=== PATIENT | male | born 1960 | race Caucasian/White ===

== ENCOUNTER 2021-06-15 14:32 | Emergency (ER) | payer OTHER ==
[2021-06-15 14:45] VITALS: BP 139/86; PULSE 98; TEMP 98.2; BMI 24.5
== END 2021-06-15 15:40 | disposition home or self-care (01) ==
LOC: JER 14:32
DX: R05 Cough (principal)
CPT/HCPCS: 71046-TC-FY; 99283-25

== ENCOUNTER 2023-09-27 16:23 | Inpatient (IN) | payer OTHER ==
[2023-09-27] MEDS ORDERED: KETOROLAC TROMETHAMINE 15 MG/ML VIAL IVPUSH ONE (18:35)
[2023-09-27] MEDS ORDERED: ACETAMINOPHEN 500 MG TABLET (FP) PO ONE (18:36)
[2023-09-27] MEDS ORDERED: ACETAMINOPHEN 500 MG TABLET (FP) ONE (19:37)
[2023-09-27] MEDS ORDERED: KETOROLAC TROMETHAMINE 15 MG/ML VIAL ONE (19:37)
[2023-09-27 19:48] LABS: BASO % 0.3 % (0-2.0); EOS % 1.3 % (0-4.5); HEMOGLOBIN 12.9 GM/dL (11.7-16.9); LYMPH % 15.2 % (8-40); MCH 29.5 pg (25.7-33.7); MCHC 34.9 g/dl (32.0-35.9); MEAN CELL VOLUME 84.5 fl (80-96); MEAN PLT VOLUME 7.3 fl (7.5-11.1); MONO % 6.9 % (3.8-10.2); NEUT % 76.3 % (42.8-82.8); PLATELET COUNT 351 10^3/uL (134-434); RBC 4.38 M/mm3 (4.00-5.60)
[2023-09-27 20:12] LABS: POTASSIUM 4.4 mmol/L (3.5-5.1)
[2023-09-27 20:14] LABS: ALBUMIN 2.8 g/dl (3.4-5.0); CALCIUM 8.4 mg/dL (8.5-10.1)
[2023-09-27 20:15] LABS: BLOOD UREA NITROGEN 18.2 mg/dL (7-18)
[2023-09-27 20:18] LABS: CREATININE 1.1 mg/dL (0.55-1.3)
[2023-09-27 20:19] LABS: BILIRUBIN,TOTAL 0.4 mg/dL (0.2-1); TOT PROT 6.8 g/dl (6.4-8.2)
[2023-09-27] MEDS ORDERED: SODIUM CHLORIDE 0.9% 500 ML INFUS.BAG IV ONE (20:27)
[2023-09-27] MEDS ORDERED: CEFTRIAXONE 1,000 MG in DEXTROSE 5%-WATER - 50 ML IVPB ONE (21:58)
[2023-09-27] MEDS ORDERED: VANCOMYCIN 1,000 MG in DEXTROSE 5%-WATER - 250 ML IVPB ONE (21:58)
[2023-09-27] MEDS ORDERED: CEFTRIAXONE 1 GM/50 ML BAG ONE (22:15)
[2023-09-27] MEDS ORDERED: VANCOMYCIN 1 GRAM (PRE-DOCKED) 1,000 MG/250 ML BAG IVPB ONE (22:15)
[2023-09-28] MEDS ORDERED: VANCOMYCIN 1,000 MG in DEXTROSE 5%-WATER - 250 ML IVPB SCH ×2 (02:00→10:00)
[2023-09-28] MEDS ORDERED: PIPERACILLIN/TAZOB 4.5 GM 4.5 GM in DEXTROSE 5%-WATER 100 ML IVPB SCH ×3 (02:00→10:00)
[2023-09-28] MEDS ORDERED: PIPERACILLIN/TAZOB 4.5 GM 4.5 GM/100 ML BAG IVPB ONE ×2 (02:11→08:57)
[2023-09-28 06:46] LABS: HEMATOCRIT 33.8 % (35.4-49); MCHC 35.7 g/dl (32.0-35.9); MEAN CELL VOLUME 84.1 fl (80-96); MEAN PLT VOLUME 7.3 fl (7.5-11.1); PLATELET COUNT 317 10^3/uL (134-434); RBC 4.02 M/mm3 (4.00-5.60); RDW 12.9 % (11.9-15.9); WHITE BLOOD COUNT 9.8 K/mm3 (4.0-10.0)
[2023-09-28 07:13] LABS: ALBUMIN 2.6 g/dl (3.4-5.0); BLOOD UREA NITROGEN 15.5 mg/dL (7-18); CALCIUM 8.6 mg/dL (8.5-10.1)
[2023-09-28 07:16] LABS: CREATININE 1.1 mg/dL (0.55-1.3)
[2023-09-28 07:17] LABS: TOT PROT 6.2 g/dl (6.4-8.2)
[2023-09-28] MEDS: INSULIN ASPART SLIDING SCALE (NOVOLOG) 1 VIAL SQ SCH ×3 (07:35→17:26)
[2023-09-28 08:34] LABS: BILIRUBIN,TOTAL 0.4 mg/dL (0.2-1)
[2023-09-28] MEDS: LOSARTAN POTASSIUM 25 MG TABLET PO SCH (09:03)
[2023-09-28] MEDS: LEVOTHYROXINE NA 75 MCG TABLET (FP) PO SCH (09:03)
[2023-09-28] MEDS: ROSUVASTATIN CA 20 MG TABLET PO SCH (09:03)
[2023-09-28] MEDS: ENOXAPARIN NA (PORCINE) 40 MG/0.4 ML DISP.SYRIN SQ SCH (09:03)
[2023-09-28] MEDS: EZETIMIBE 10 MG TABLET (FP) PO SCH (09:17)
[2023-09-28] MEDS: OFLOXACIN 0.3% OTIC SOLUTION 5 ML BOTTLE AU SCH (09:17)
[2023-09-28] MEDS ORDERED: VANCOMYCIN 1 GRAM (PRE-DOCKED) 1,000 MG/250 ML BAG IVPB ONE (09:22)
[2023-09-28] MEDS ORDERED: INSULIN (NOVOLOG) ASPART 100 UNITS/ML 10ML VIAL ONE (17:25)
[2023-09-28] MEDS: PIPERACILLIN/TAZOB 3.375 GM 3.375 GM in DEXTROSE 5%-WATER - 50 ML IVPB SCH (17:55)
[2023-09-28] MEDS: VANCOMYCIN/WATER FOR INJ (PEG) 1,000 MG/200 ML BAG IVPB SCH (21:52)
[2023-09-29] MEDS: PIPERACILLIN/TAZOB 3.375 GM 3.375 GM in DEXTROSE 5%-WATER - 50 ML IVPB SCH ×3 (01:53→17:04)
[2023-09-29] MEDS: INSULIN ASPART SLIDING SCALE (NOVOLOG) 1 VIAL SQ SCH ×3 (06:07→16:36)
[2023-09-29] MEDS: LEVOTHYROXINE NA 75 MCG TABLET (FP) PO SCH (06:07)
[2023-09-29] MEDS: EZETIMIBE 10 MG TABLET (FP) PO SCH (09:39)
[2023-09-29] MEDS: LOSARTAN POTASSIUM 25 MG TABLET PO SCH (09:39)
[2023-09-29] MEDS: ENOXAPARIN NA (PORCINE) 40 MG/0.4 ML DISP.SYRIN SQ SCH (09:39)
[2023-09-29] MEDS: ROSUVASTATIN CA 20 MG TABLET PO SCH (09:39)
[2023-09-29] MEDS: VANCOMYCIN/WATER FOR INJ (PEG) 1,000 MG/200 ML BAG IVPB SCH ×2 (09:40→21:35)
[2023-09-29 10:13] LABS: BASO % 0.4 % (0-2.0); EOS % 1.7 % (0-4.5); HEMATOCRIT 36.1 % (35.4-49); HEMOGLOBIN 12.2 GM/dL (11.7-16.9); LYMPH % 22.3 % (8-40); MCH 28.9 pg (25.7-33.7); MEAN PLT VOLUME 7.5 fl (7.5-11.1); MONO % 8.3 % (3.8-10.2); NEUT % 67.3 % (42.8-82.8); PLATELET COUNT 327 10^3/uL (134-434); RBC 4.24 M/mm3 (4.00-5.60); WHITE BLOOD COUNT 11.3 K/mm3 (4.0-10.0)
[2023-09-29 10:28] LABS: POTASSIUM 4.5 mmol/L (3.5-5.1)
[2023-09-29 10:31] LABS: ALBUMIN 2.6 g/dl (3.4-5.0); CALCIUM 8.7 mg/dL (8.5-10.1)
[2023-09-29 10:32] LABS: BLOOD UREA NITROGEN 17.9 mg/dL (7-18)
[2023-09-29 10:35] LABS: CREATININE 1.2 mg/dL (0.55-1.3)
[2023-09-29 10:36] LABS: BILIRUBIN,TOTAL 0.6 mg/dL (0.2-1); TOT PROT 6.3 g/dl (6.4-8.2)
[2023-09-29] MEDS: OFLOXACIN 0.3% OTIC SOLUTION 5 ML BOTTLE AU SCH (10:38)
[2023-09-29] MEDS ORDERED: INSULIN (NOVOLOG) ASPART 100 UNITS/ML 10ML VIAL ONE ×2 (10:59→17:56)
[2023-09-29 15:20] VITALS: BMI 23.8
[2023-09-29] MEDS: ACETAMINOPHEN 325 MG TABLET (FP) PO PRN (19:01)
[2023-09-30] MEDS: PIPERACILLIN/TAZOB 3.375 GM 3.375 GM in DEXTROSE 5%-WATER - 50 ML IVPB SCH ×3 (03:30→17:01)
[2023-09-30] MEDS: LEVOTHYROXINE NA 75 MCG TABLET (FP) PO SCH (05:59)
[2023-09-30] MEDS: INSULIN ASPART SLIDING SCALE (NOVOLOG) 1 VIAL SQ SCH ×3 (05:59→17:01)
[2023-09-30] MEDS: VANCOMYCIN/WATER FOR INJ (PEG) 1,000 MG/200 ML BAG IVPB SCH ×2 (10:06→21:45)
[2023-09-30] MEDS: ROSUVASTATIN CA 20 MG TABLET PO SCH (10:07)
[2023-09-30] MEDS: ACETAMINOPHEN 325 MG TABLET (FP) PO PRN ×2 (10:07→21:44)
[2023-09-30] MEDS: LOSARTAN POTASSIUM 25 MG TABLET PO SCH (10:07)
[2023-09-30] MEDS: OFLOXACIN 0.3% OTIC SOLUTION 5 ML BOTTLE AU SCH (10:10)
[2023-09-30] MEDS: EZETIMIBE 10 MG TABLET (FP) PO SCH (10:10)
[2023-09-30] MEDS: ENOXAPARIN NA (PORCINE) 40 MG/0.4 ML DISP.SYRIN SQ SCH (10:11)
[2023-09-30] MEDS ORDERED: INSULIN (NOVOLOG) ASPART 100 UNITS/ML 10ML VIAL ONE ×2 (11:18→16:38)
[2023-09-30] MEDS: INSULIN (LEVEMIR) 100 UNITS/ML UNITS SQ SCH (21:46)
[2023-10-01] MEDS: PIPERACILLIN/TAZOB 3.375 GM 3.375 GM in DEXTROSE 5%-WATER - 50 ML IVPB SCH ×3 (01:29→19:37)
[2023-10-01] MEDS: LEVOTHYROXINE NA 75 MCG TABLET (FP) PO SCH (06:41)
[2023-10-01] MEDS ORDERED: INSULIN (NOVOLOG) ASPART 100 UNITS/ML 10ML VIAL ONE ×2 (06:45→12:03)
[2023-10-01] MEDS: INSULIN ASPART SLIDING SCALE (NOVOLOG) 1 VIAL SQ SCH ×3 (06:50→18:21)
[2023-10-01] MEDS: INSULIN (LEVEMIR) 100 UNITS/ML UNITS SQ SCH ×2 (06:50→21:51)
[2023-10-01 09:04] LABS: BASO % 0.5 % (0-2.0); EOS % 2.2 % (0-4.5); HEMATOCRIT 39.3 % (35.4-49); HEMOGLOBIN 13.3 GM/dL (11.7-16.9); LYMPH % 25.6 % (8-40); MCH 28.6 pg (25.7-33.7); MCHC 33.9 g/dl (32.0-35.9); MEAN CELL VOLUME 84.5 fl (80-96); MEAN PLT VOLUME 7.3 fl (7.5-11.1); NEUT % 63.7 % (42.8-82.8); PLATELET COUNT 382 10^3/uL (134-434); RBC 4.65 M/mm3 (4.00-5.60); RDW 12.5 % (11.9-15.9); WHITE BLOOD COUNT 10.3 K/mm3 (4.0-10.0)
[2023-10-01 09:08] LABS: POTASSIUM 4.4 mmol/L (3.5-5.1)
[2023-10-01 09:14] LABS: CALCIUM 9.3 mg/dL (8.5-10.1); CREATININE 1.1 mg/dL (0.55-1.3)
[2023-10-01] MEDS: EZETIMIBE 10 MG TABLET (FP) PO SCH (10:07)
[2023-10-01] MEDS: ENOXAPARIN NA (PORCINE) 40 MG/0.4 ML DISP.SYRIN SQ SCH (10:07)
[2023-10-01] MEDS: VANCOMYCIN/WATER FOR INJ (PEG) 1,000 MG/200 ML BAG IVPB SCH ×2 (10:08→21:45)
[2023-10-01] MEDS: LOSARTAN POTASSIUM 25 MG TABLET PO SCH (10:08)
[2023-10-01] MEDS: OFLOXACIN 0.3% OTIC SOLUTION 5 ML BOTTLE AU SCH (10:11)
[2023-10-01] MEDS: ROSUVASTATIN CA 20 MG TABLET PO SCH (10:11)
[2023-10-01] MEDS: ACETAMINOPHEN 325 MG TABLET (FP) PO PRN ×2 (10:12→20:18)
[2023-10-02] MEDS: PIPERACILLIN/TAZOB 3.375 GM 3.375 GM in DEXTROSE 5%-WATER - 50 ML IVPB SCH ×3 (01:48→18:21)
[2023-10-02] MEDS ORDERED: INSULIN (NOVOLOG) ASPART 100 UNITS/ML 10ML VIAL ONE (06:07)
[2023-10-02] MEDS: LEVOTHYROXINE NA 75 MCG TABLET (FP) PO SCH (06:11)
[2023-10-02] MEDS: INSULIN ASPART SLIDING SCALE (NOVOLOG) 1 VIAL SQ SCH ×3 (06:14→18:20)
[2023-10-02] MEDS: EZETIMIBE 10 MG TABLET (FP) PO SCH (09:07)
[2023-10-02] MEDS: LOSARTAN POTASSIUM 25 MG TABLET PO SCH (09:07)
[2023-10-02] MEDS: ROSUVASTATIN CA 20 MG TABLET PO SCH (09:07)
[2023-10-02] MEDS: VANCOMYCIN/WATER FOR INJ (PEG) 1,000 MG/200 ML BAG IVPB SCH ×2 (09:08→22:18)
[2023-10-02] MEDS: OFLOXACIN 0.3% OTIC SOLUTION 5 ML BOTTLE AU SCH (09:08)
[2023-10-02 09:29] LABS: BASO % 0.3 % (0-2.0); EOS % 1.5 % (0-4.5); HEMOGLOBIN 12.8 GM/dL (11.7-16.9); LYMPH % 21.4 % (8-40); MCH 28.9 pg (25.7-33.7); MCHC 33.8 g/dl (32.0-35.9); MEAN CELL VOLUME 85.5 fl (80-96); MEAN PLT VOLUME 7.5 fl (7.5-11.1); NEUT % 68.8 % (42.8-82.8); PLATELET COUNT 340 10^3/uL (134-434); RBC 4.44 M/mm3 (4.00-5.60); RDW 12.8 % (11.9-15.9); WHITE BLOOD COUNT 11.1 K/mm3 (4.0-10.0)
[2023-10-02 09:33] LABS: INR 1.01 (0.83-1.09); PROTHROMBIN TIME (PATIENT) 11.7 SEC (9.7-13.0)
[2023-10-02 09:42] LABS: POTASSIUM 4.3 mmol/L (3.5-5.1)
[2023-10-02 09:46] LABS: ALBUMIN 2.6 g/dl (3.4-5.0); BLOOD UREA NITROGEN 19.5 mg/dL (7-18)
[2023-10-02] MEDS: ENOXAPARIN NA (PORCINE) 40 MG/0.4 ML DISP.SYRIN SQ SCH (09:46)
[2023-10-02 09:48] LABS: CREATININE 1.2 mg/dL (0.55-1.3); PHOSPHOROUS 3.1 mg/dL (2.5-4.9)
[2023-10-02 09:50] LABS: BILIRUBIN,TOTAL 0.4 mg/dL (0.2-1); TOT PROT 6.9 g/dl (6.4-8.2)
[2023-10-02] MEDS ORDERED: BACITRACIN ZINC 15 GM TUBE TOPICAL OINTMENT ONE (12:46)
[2023-10-02] MEDS ORDERED: ONDANSETRON 4 MG/2 ML VIAL IVPUSH PRN ×2 (13:10→16:08)
[2023-10-02] MEDS ORDERED: SODIUM CHLORIDE 1,000 ML IV SCH (13:15)
[2023-10-02] MEDS ORDERED: LIDOCAINE HCL/PF 2% SDV 5ML VIAL ONE (13:18)
[2023-10-02] MEDS ORDERED: PROPOFOL 20 ML ONE (13:19)
[2023-10-02] MEDS ORDERED: ROCURONIUM BROMIDE 50 MG/5 ML SYRINGE ONE (13:19)
[2023-10-02] MEDS ORDERED: MIDAZOLAM HCL 2 MG/2 ML SINGLE DOSE VIAL ONE (13:19)
[2023-10-02] MEDS ORDERED: HYDROmorphone HCl 2 MG/ML VIAL ONE (15:00)
[2023-10-02] MEDS ORDERED: ACETAMINOPHEN INJECTION 100 ML IVPB ONE (15:23)
[2023-10-02] MEDS ORDERED: DEXMEDETOMIDINE HCL 200 MCG/2 ML IVPB ONE (15:23)
[2023-10-02] MEDS ORDERED: OFLOXACIN 0.3% OPHTHALMIC SOLUTION 5 ML BOTTLE AS ONE ×2 (15:33)
[2023-10-02] MEDS ORDERED: OXYMETAZOLINE 0.05% NASAL SOLUTION 15 ML BOTTLE NS ONE ×2 (15:33)
[2023-10-02] MEDS ORDERED: NEOSTIGMINE METHYLSULFATE 0.5 MG/1 ML - 10 ML MDV ONE (15:36)
[2023-10-02] MEDS ORDERED: ePHEDrine SULFATE 50 MG/1 ML AMPULE ONE (15:41)
[2023-10-02] MEDS ORDERED: SUGAMMADEX SODIUM 200 MG/2 ML VIAL ONE (15:46)
[2023-10-02] MEDS: SODIUM CHLORIDE 1,000 ML IV SCH (17:10)
[2023-10-02] MEDS: INSULIN (LEVEMIR) 100 UNITS/ML UNITS SQ SCH (22:19)
[2023-10-02] MEDS: ACETAMINOPHEN 325 MG TABLET (FP) PO PRN (23:23)
[2023-10-03] MEDS: PIPERACILLIN/TAZOB 3.375 GM 3.375 GM in DEXTROSE 5%-WATER - 50 ML IVPB SCH ×3 (02:15→17:22)
[2023-10-03] MEDS: SODIUM CHLORIDE 1,000 ML IV SCH (04:46)
[2023-10-03] MEDS: INSULIN ASPART SLIDING SCALE (NOVOLOG) 1 VIAL SQ SCH ×2 (06:43→11:43)
[2023-10-03] MEDS: INSULIN (LEVEMIR) 100 UNITS/ML UNITS SQ SCH (06:44)
[2023-10-03] MEDS: LEVOTHYROXINE NA 75 MCG TABLET (FP) PO SCH (07:03)
[2023-10-03 09:02] LABS: HEMATOCRIT 30.9 % (35.4-49); MCH 29.8 pg (25.7-33.7); MCHC 35.6 g/dl (32.0-35.9); MEAN CELL VOLUME 83.8 fl (80-96); MEAN PLT VOLUME 7.6 fl (7.5-11.1); PLATELET COUNT 311 10^3/uL (134-434); RBC 3.69 M/mm3 (4.00-5.60); RDW 12.5 % (11.9-15.9); WHITE BLOOD COUNT 12.8 K/mm3 (4.0-10.0)
[2023-10-03 09:25] LABS: BLOOD UREA NITROGEN 25.6 mg/dL (7-18); CREATININE 1.3 mg/dL (0.55-1.3)
[2023-10-03 09:26] LABS: CALCIUM 7.6 mg/dL (8.5-10.1)
[2023-10-03] MEDS: ENOXAPARIN NA (PORCINE) 40 MG/0.4 ML DISP.SYRIN SQ SCH (10:09)
[2023-10-03] MEDS: LOSARTAN POTASSIUM 25 MG TABLET PO SCH (10:10)
[2023-10-03] MEDS: VANCOMYCIN/WATER FOR INJ (PEG) 1,000 MG/200 ML BAG IVPB SCH ×2 (10:10→22:34)
[2023-10-03] MEDS: EZETIMIBE 10 MG TABLET (FP) PO SCH (10:12)
[2023-10-03] MEDS ORDERED: INSULIN (NOVOLOG) ASPART 100 UNITS/ML 10ML VIAL ONE (11:42)
[2023-10-03] MEDS ORDERED: INSULIN ASPART SLIDING SCALE (NOVOLOG) 1 VIAL SQ SCH ×3 (12:27→22:00)
[2023-10-03] MEDS ORDERED: INSULIN (LEVEMIR) 100 UNITS/ML UNITS SQ ONE (13:30)
[2023-10-03] MEDS: OFLOXACIN 0.3% OTIC SOLUTION 5 ML BOTTLE AU SCH (15:46)
[2023-10-03] MEDS ORDERED: INSULIN (LEVEMIR) 100 UNITS/ML UNITS SQ SCH (22:00)
[2023-10-03] MEDS: ROSUVASTATIN CA 20 MG TABLET PO SCH (22:34)
[2023-10-04] MEDS: PIPERACILLIN/TAZOB 3.375 GM 3.375 GM in DEXTROSE 5%-WATER - 50 ML IVPB SCH ×3 (03:09→17:20)
[2023-10-04] MEDS: INSULIN ASPART SLIDING SCALE (NOVOLOG) 1 VIAL SQ SCH ×4 (07:28→22:10)
[2023-10-04] MEDS: INSULIN (LEVEMIR) 100 UNITS/ML UNITS SQ SCH ×2 (07:29→22:09)
[2023-10-04] MEDS: ACETAMINOPHEN 325 MG TABLET (FP) PO PRN ×2 (07:36→22:11)
[2023-10-04] MEDS: LEVOTHYROXINE NA 75 MCG TABLET (FP) PO SCH (07:38)
[2023-10-04] MEDS ORDERED: INSULIN (NOVOLOG) ASPART 100 UNITS/ML 10ML VIAL ONE ×3 (08:28→17:13)
[2023-10-04] MEDS: ENOXAPARIN NA (PORCINE) 40 MG/0.4 ML DISP.SYRIN SQ SCH (09:01)
[2023-10-04] MEDS: LOSARTAN POTASSIUM 25 MG TABLET PO SCH (09:01)
[2023-10-04] MEDS: VANCOMYCIN/WATER FOR INJ (PEG) 1,000 MG/200 ML BAG IVPB SCH ×2 (09:01→22:09)
[2023-10-04] MEDS: OFLOXACIN 0.3% OTIC SOLUTION 5 ML BOTTLE AU SCH (09:02)
[2023-10-04 09:13] LABS: BASO % 0.1 % (0-2.0); EOS % 0.7 % (0-4.5); HEMATOCRIT 34.6 % (35.4-49); HEMOGLOBIN 11.8 GM/dL (11.7-16.9); LYMPH % 26.3 % (8-40); MCHC 34.2 g/dl (32.0-35.9); MEAN CELL VOLUME 84.7 fl (80-96); MEAN PLT VOLUME 7.5 fl (7.5-11.1); MONO % 6.8 % (3.8-10.2); NEUT % 66.1 % (42.8-82.8); PLATELET COUNT 343 10^3/uL (134-434); RBC 4.08 M/mm3 (4.00-5.60); RDW 12.8 % (11.9-15.9); WHITE BLOOD COUNT 12.6 K/mm3 (4.0-10.0)
[2023-10-04] MEDS: EZETIMIBE 10 MG TABLET (FP) PO SCH (09:14)
[2023-10-04 09:46] LABS: POTASSIUM 3.9 mmol/L (3.5-5.1)
[2023-10-04 09:56] LABS: BLOOD UREA NITROGEN 24.9 mg/dL (7-18)
[2023-10-04 09:57] LABS: ALBUMIN 2.7 g/dl (3.4-5.0)
[2023-10-04 09:59] LABS: CREATININE 1.3 mg/dL (0.55-1.3)
[2023-10-04 10:01] LABS: BILIRUBIN,TOTAL 0.7 mg/dL (0.2-1); TOT PROT 6.3 g/dl (6.4-8.2)
[2023-10-04 10:09] LABS: CALCIUM 8.8 mg/dL (8.5-10.1)
[2023-10-04] MEDS: ROSUVASTATIN CA 20 MG TABLET PO SCH (22:09)
[2023-10-05] MEDS: PIPERACILLIN/TAZOB 3.375 GM 3.375 GM in DEXTROSE 5%-WATER - 50 ML IVPB SCH ×3 (02:34→17:07)
[2023-10-05] MEDS: INSULIN (LEVEMIR) 100 UNITS/ML UNITS SQ SCH ×2 (07:05→21:33)
[2023-10-05] MEDS: LEVOTHYROXINE NA 75 MCG TABLET (FP) PO SCH (07:05)
[2023-10-05] MEDS: INSULIN ASPART SLIDING SCALE (NOVOLOG) 1 VIAL SQ SCH ×4 (07:05→21:34)
[2023-10-05] MEDS: ACETAMINOPHEN 325 MG TABLET (FP) PO PRN ×2 (07:11→21:16)
[2023-10-05 09:37] LABS: BASO % 0.4 % (0-2.0); EOS % 1.2 % (0-4.5); HEMATOCRIT 36.3 % (35.4-49); HEMOGLOBIN 12.3 GM/dL (11.7-16.9); LYMPH % 25.7 % (8-40); MCH 28.7 pg (25.7-33.7); MEAN CELL VOLUME 84.6 fl (80-96); MEAN PLT VOLUME 7.3 fl (7.5-11.1); MONO % 8.3 % (3.8-10.2); NEUT % 64.4 % (42.8-82.8); PLATELET COUNT 352 10^3/uL (134-434); RDW 12.7 % (11.9-15.9)
[2023-10-05 09:59] LABS: ALBUMIN 2.6 g/dl (3.4-5.0); CALCIUM 8.1 mg/dL (8.5-10.1)
[2023-10-05] MEDS: LOSARTAN POTASSIUM 25 MG TABLET PO SCH (10:00)
[2023-10-05] MEDS: ENOXAPARIN NA (PORCINE) 40 MG/0.4 ML DISP.SYRIN SQ SCH (10:00)
[2023-10-05] MEDS: EZETIMIBE 10 MG TABLET (FP) PO SCH (10:01)
[2023-10-05 10:02] LABS: CREATININE 1.2 mg/dL (0.55-1.3)
[2023-10-05 10:04] LABS: BILIRUBIN,TOTAL 0.4 mg/dL (0.2-1); TOT PROT 6.6 g/dl (6.4-8.2)
[2023-10-05] MEDS ORDERED: INSULIN (NOVOLOG) ASPART 100 UNITS/ML 10ML VIAL ONE ×3 (11:05→21:31)
[2023-10-05] MEDS: VANCOMYCIN/WATER FOR INJ (PEG) 1,000 MG/200 ML BAG IVPB SCH ×2 (11:10→21:14)
[2023-10-05] MEDS: ROSUVASTATIN CA 20 MG TABLET PO SCH (21:14)
[2023-10-06] MEDS: PIPERACILLIN/TAZOB 3.375 GM 3.375 GM in DEXTROSE 5%-WATER - 50 ML IVPB SCH ×2 (01:19→09:05)
[2023-10-06] MEDS: INSULIN ASPART SLIDING SCALE (NOVOLOG) 1 VIAL SQ SCH ×2 (06:11→11:51)
[2023-10-06] MEDS: INSULIN (LEVEMIR) 100 UNITS/ML UNITS SQ SCH (06:12)
[2023-10-06] MEDS: LEVOTHYROXINE NA 75 MCG TABLET (FP) PO SCH (06:13)
[2023-10-06] MEDS ORDERED: INSULIN (NOVOLOG) ASPART 100 UNITS/ML 10ML VIAL ONE (06:22)
[2023-10-06 07:16] VITALS: RESP 18
[2023-10-06] MEDS: ENOXAPARIN NA (PORCINE) 40 MG/0.4 ML DISP.SYRIN SQ SCH (09:04)
[2023-10-06] MEDS: ACETAMINOPHEN 325 MG TABLET (FP) PO PRN (09:04)
[2023-10-06] MEDS: LOSARTAN POTASSIUM 25 MG TABLET PO SCH (09:05)
[2023-10-06] MEDS: EZETIMIBE 10 MG TABLET (FP) PO SCH (09:05)
[2023-10-06 09:51] LABS: BASO % 0.4 % (0-2.0); HEMATOCRIT 35.3 % (35.4-49); HEMOGLOBIN 12.3 GM/dL (11.7-16.9); LYMPH % 23.2 % (8-40); MCH 29.4 pg (25.7-33.7); MCHC 34.8 g/dl (32.0-35.9); MEAN CELL VOLUME 84.7 fl (80-96); MEAN PLT VOLUME 7.3 fl (7.5-11.1); MONO % 6.8 % (3.8-10.2); NEUT % 68.6 % (42.8-82.8); PLATELET COUNT 346 10^3/uL (134-434); RBC 4.17 M/mm3 (4.00-5.60); RDW 12.6 % (11.9-15.9); WHITE BLOOD COUNT 11.8 K/mm3 (4.0-10.0)
[2023-10-06] MEDS: VANCOMYCIN/WATER FOR INJ (PEG) 1,000 MG/200 ML BAG IVPB SCH (10:35)
[2023-10-06 10:42] LABS: POTASSIUM 3.9 mmol/L (3.5-5.1)
[2023-10-06 10:47] LABS: CALCIUM 8.3 mg/dL (8.5-10.1)
[2023-10-06 10:48] LABS: ALBUMIN 2.6 g/dl (3.4-5.0)
[2023-10-06 10:51] LABS: CREATININE 1.1 mg/dL (0.55-1.3)
[2023-10-06 10:53] LABS: BILIRUBIN,TOTAL 0.5 mg/dL (0.2-1); TOT PROT 6.5 g/dl (6.4-8.2)
[2023-10-06 14:51] VITALS: BP 106/70; PULSE 87; TEMP 97.9
[2023-10-06] MEDS ORDERED: AMOX TR/POT CLAV 875MG/125MG TABLETS (FP) PO SCH (17:30)
== END 2023-10-06 16:17 | disposition home or self-care (01) | DRG 136 ==
LOC: JER 16:23 → JERBED 23:32 → J7W 09-28 15:45
PROVIDERS: ADMIT Internal Medicine; ATTEND Nurse Practitioner Acute Care
PROC: 09JK8ZZ Inspection of Nasal Mucosa and Soft Tissue, Via Natural or Artificial Opening Endoscopic (ICD-10-PCS; principal; 2023-09-30)
PROC: 099R8ZZ Drainage of Left Maxillary Sinus, Via Natural or Artificial Opening Endoscopic (ICD-10-PCS; 2023-10-02)
PROC: 099680Z Drainage of Left Middle Ear with Drainage Device, Via Natural or Artificial Opening Endoscopic (ICD-10-PCS; 2023-10-02)
PROC: 09BV8ZZ Excision of Left Ethmoid Sinus, Via Natural or Artificial Opening Endoscopic (ICD-10-PCS; 2023-10-02 14:00)
DX: H66.012 Acute suppurative otitis media with spontaneous rupture of ear drum, left ear (principal); J32.0 Chronic maxillary sinusitis; H70.12 Chronic mastoiditis, left ear; I10 Essential (primary) hypertension; E78.5 Hyperlipidemia, unspecified; D47.2 Monoclonal gammopathy; E11.65 Type 2 diabetes mellitus with hyperglycemia; J34.2 Deviated nasal septum; J34.89 Other specified disorders of nose and nasal sinuses; E03.9 Hypothyroidism, unspecified; E11.40 Type 2 diabetes mellitus with diabetic neuropathy, unspecified
CPT/HCPCS: 0241U-QW; 36415; 70481-TC; 80048; 80053; 82962; 83036; 83735; 84100; 85025; 85027; 85610; 85651; 85730; 86140; 86850; 86900; 86901; 87040; 87070; 87075; 87186; 87205; 93005; 93010; 94760; 99285-25; G0480; Q9967

== ENCOUNTER 2023-10-16 10:18 | Observation (INO) | payer OTHER ==
[2023-10-16 12:51] LABS: BASO % 0.3 % (0-2.0); HEMATOCRIT 36.3 % (35.4-49); HEMOGLOBIN 12.2 GM/dL (11.7-16.9); LYMPH % 16.9 % (8-40); MCH 28.5 pg (25.7-33.7); MCHC 33.5 g/dl (32.0-35.9); MEAN CELL VOLUME 85.1 fl (80-96); MEAN PLT VOLUME 7.4 fl (7.5-11.1); MONO % 5.5 % (3.8-10.2); NEUT % 76.3 % (42.8-82.8); PLATELET COUNT 363 10^3/uL (134-434); RBC 4.27 M/mm3 (4.00-5.60); RDW 12.8 % (11.9-15.9)
[2023-10-16 12:58] LABS: INR 1.05 (0.83-1.09); PROTHROMBIN TIME (PATIENT) 12.2 SEC (9.7-13.0)
[2023-10-16 13:01] LABS: ACTIVATED PTT 29.8 SECONDS (25.2-36.5)
[2023-10-16 13:21] LABS: POTASSIUM 4.5 mmol/L (3.5-5.1)
[2023-10-16 13:22] LABS: CALCIUM 8.9 mg/dL (8.5-10.1)
[2023-10-16 13:23] LABS: ALBUMIN 2.9 g/dl (3.4-5.0); BLOOD UREA NITROGEN 21.9 mg/dL (7-18)
[2023-10-16 13:28] LABS: BILIRUBIN,TOTAL 0.5 mg/dL (0.2-1); ERYTHROCYTE SEDIMENTATION RATE 92 mm/hr (0-20); TOT PROT 7.2 g/dl (6.4-8.2)
[2023-10-16] MEDS ORDERED: PIPERACILLIN/TAZOB 3.375 GM 3.375 GM in DEXTROSE 5%-WATER - 50 ML IVPB ONE (14:09)
[2023-10-16] MEDS ORDERED: VANCOMYCIN 1 GM PREMIX - 1 GM/200 ML BAG IVPB ONE (14:10)
[2023-10-16] MEDS ORDERED: ACETAMINOPHEN 1000 MG/100 ML BAG IVPB ONE (14:10)
[2023-10-16] MEDS ORDERED: ACETAMINOPHEN INJECTION 100 ML IVPB ONE (14:33)
[2023-10-16] MEDS ORDERED: PIPERACILLIN/TAZOB 3.375 GM 3.375 GM/50 ML BAG IVPB ONE (14:48)
[2023-10-16] MEDS ORDERED: VANCOMYCIN 1 GRAM (PRE-DOCKED) 1,000 MG/250 ML BAG IVPB ONE (15:12)
[2023-10-16 15:34] LABS: URIC ACID 2.6 mg/dL (2.6-7.2)
[2023-10-16] MEDS: INSULIN ASPART SLIDING SCALE (NOVOLOG) 1 VIAL SQ SCH (16:44)
[2023-10-16 20:53] VITALS: BMI 24.3
[2023-10-16] MEDS: INSULIN (LEVEMIR) 100 UNITS/ML UNITS SQ SCH (22:05)
[2023-10-16] MEDS: NAPROXEN 375 MG TABLET PO SCH (22:49)
[2023-10-17] MEDS ORDERED: INSULIN (NOVOLOG) ASPART 100 UNITS/ML 10ML VIAL ONE (06:10)
[2023-10-17] MEDS: LEVOTHYROXINE NA 75 MCG TABLET (FP) PO SCH (06:25)
[2023-10-17] MEDS: INSULIN ASPART SLIDING SCALE (NOVOLOG) 1 VIAL SQ SCH ×3 (06:26→17:01)
[2023-10-17] MEDS: INSULIN (LEVEMIR) 100 UNITS/ML UNITS SQ SCH ×2 (06:26→21:58)
[2023-10-17] MEDS: NAPROXEN 375 MG TABLET PO SCH ×2 (09:04→22:00)
[2023-10-17] MEDS: ENOXAPARIN NA (PORCINE) 40 MG/0.4 ML DISP.SYRIN SQ SCH (09:05)
[2023-10-17] MEDS: LOSARTAN POTASSIUM 25 MG TABLET PO SCH (09:05)
[2023-10-17] MEDS: ACETAMINOPHEN 325 MG TABLET (FP) PO PRN ×2 (09:13→21:58)
[2023-10-17] MEDS: EZETIMIBE 10 MG TABLET (FP) PO SCH (10:00)
[2023-10-17 10:43] LABS: POTASSIUM 4.3 mmol/L (3.5-5.1)
[2023-10-17 10:47] LABS: BLOOD UREA NITROGEN 20.4 mg/dL (7-18)
[2023-10-17 10:50] LABS: CREATININE 1.1 mg/dL (0.55-1.3)
[2023-10-17 12:40] LABS: BASO % 0.4 % (0-2.0); EOS % 1.3 % (0-4.5); HEMATOCRIT 35.2 % (35.4-49); HEMOGLOBIN 11.9 GM/dL (11.7-16.9); MCH 28.6 pg (25.7-33.7); MCHC 33.7 g/dl (32.0-35.9); MEAN PLT VOLUME 7.6 fl (7.5-11.1); MONO % 7.1 % (3.8-10.2); NEUT % 68.2 % (42.8-82.8); PLATELET COUNT 374 10^3/uL (134-434); RBC 4.14 M/mm3 (4.00-5.60); RDW 12.7 % (11.9-15.9); WHITE BLOOD COUNT 10.6 K/mm3 (4.0-10.0)
[2023-10-17] MEDS ORDERED: PIPERACILLIN/TAZOB 3.375 GM 3.375 GM in DEXTROSE 5%-WATER - 50 ML IVPB ONE (15:00)
[2023-10-17] MEDS ORDERED: ROSUVASTATIN CA 20 MG TABLET PO SCH (22:00)
[2023-10-18] MEDS: LEVOTHYROXINE NA 75 MCG TABLET (FP) PO SCH (06:09)
[2023-10-18] MEDS: INSULIN (LEVEMIR) 100 UNITS/ML UNITS SQ SCH (07:46)
[2023-10-18] MEDS: INSULIN ASPART SLIDING SCALE (NOVOLOG) 1 VIAL SQ SCH ×2 (07:47→12:09)
[2023-10-18 09:17] LABS: BASO % 0.4 % (0-2.0); EOS % 1.5 % (0-4.5); HEMATOCRIT 31.5 % (35.4-49); HEMOGLOBIN 10.8 GM/dL (11.7-16.9); LYMPH % 23.9 % (8-40); MCHC 34.4 g/dl (32.0-35.9); MEAN CELL VOLUME 84.4 fl (80-96); MEAN PLT VOLUME 7.5 fl (7.5-11.1); MONO % 8.3 % (3.8-10.2); NEUT % 65.9 % (42.8-82.8); PLATELET COUNT 323 10^3/uL (134-434); RBC 3.74 M/mm3 (4.00-5.60); RDW 12.7 % (11.9-15.9); WHITE BLOOD COUNT 6.2 K/mm3 (4.0-10.0)
[2023-10-18 09:34] LABS: POTASSIUM 4.5 mmol/L (3.5-5.1)
[2023-10-18] MEDS: ENOXAPARIN NA (PORCINE) 40 MG/0.4 ML DISP.SYRIN SQ SCH (09:45)
[2023-10-18] MEDS: NAPROXEN 375 MG TABLET PO SCH (09:45)
[2023-10-18] MEDS: LOSARTAN POTASSIUM 25 MG TABLET PO SCH (09:45)
[2023-10-18] MEDS: EZETIMIBE 10 MG TABLET (FP) PO SCH (09:45)
[2023-10-18 09:55] LABS: CALCIUM 8.8 mg/dL (8.5-10.1)
[2023-10-18 09:56] LABS: ALBUMIN 2.5 g/dl (3.4-5.0); BLOOD UREA NITROGEN 21.9 mg/dL (7-18); MAGNESIUM 2.3 mg/dL (1.8-2.4)
[2023-10-18 09:59] LABS: CREATININE 1.2 mg/dL (0.55-1.3)
[2023-10-18 10:00] LABS: BILIRUBIN,TOTAL 0.4 mg/dL (0.2-1)
[2023-10-18 10:01] LABS: TOT PROT 6.1 g/dl (6.4-8.2)
[2023-10-18 13:42] VITALS: RESP 20
[2023-10-18 14:32] VITALS: BP 120/68; PULSE 71; TEMP 97.4
== END 2023-10-18 15:23 | disposition home or self-care (01) ==
LOC: JER 10:18 → INTOOBSV 14:11 → UNDOADMOB 14:11 → JERBED 14:11 → J7W 18:14 → JERBED 18:14 → J7W 10-17 16:17
PROVIDERS: ADMIT Internal Medicine; ATTEND Nurse Practitioner Acute Care
PROC: 3E023GC Introduction of Other Therapeutic Substance into Muscle, Percutaneous Approach (ICD-10-PCS; principal; 2023-10-17)
PROC: 3E033NZ Introduction of Analgesics, Hypnotics, Sedatives into Peripheral Vein, Percutaneous Approach (ICD-10-PCS; 2023-10-17)
PROC: 3E013VG Introduction of Insulin into Subcutaneous Tissue, Percutaneous Approach (ICD-10-PCS; 2023-10-17)
PROC: 3E03329 Introduction of Other Anti-infective into Peripheral Vein, Percutaneous Approach (ICD-10-PCS; 2023-10-17)
DX: I89.1 Lymphangitis (principal); M65.231 Calcific tendinitis, right forearm; E11.65 Type 2 diabetes mellitus with hyperglycemia; E78.5 Hyperlipidemia, unspecified; L53.8 Other specified erythematous conditions; M67.40 Ganglion, unspecified site; E03.9 Hypothyroidism, unspecified
CPT/HCPCS: 36415; 73110-TC-RT-FY; 73130-TC-RT-FY; 80048; 80053; 82550; 82962; 83036; 83605; 83735; 84550; 85025; 85610; 85651; 85730; 86140; 87040; 93005; 93010; 93971; 96365; 96367; 96372; 96375; 99285-25; G0378